=== PATIENT | female | born 1950 | race American Indian/Alaskan Native ===

== ENCOUNTER 2018-11-24 00:03 | Inpatient (IN) | payer MEDICARE ==
--- NOTE | 2018-11-24 00:16 | Emergency Department Report ---
HPI - General Time Seen by Provider: 11/24/18 00:11 - HPI HPI: 68-year-old female presents to the emergency department with a complaint of shortness of breath that started earlier this afternoon. Patient had a pulse ox in the 60s when found by EMS. It went up transiently when she was placed on a nonrebreather but then it went back down into the 60s and 70s. The patient would not or could not tolerate CPAP in route. She did not receive any medications in route. She has a past medical history of CHF, previous left- sided breast cancer, pneumonia, pacemaker, hypertension, high cholesterol. The patient was just recently at [facility] for pneumonia and ended up getting a right-sided pacemaker placed. She is a former smoker. She is not on any home oxygen but apparently that has been a discussion with her physicians. I was able to get a little more information from the patient's daughter was not bedside. The patient went to [facility] about one week ago for shortness of breath and was found to have some CHF and pneumonia. She was transferred from there to [facility] where she has both her primary care physician, Dr. Pacehco, and her program checker, Dr. Serrano. She needed a pacemaker secondary to sustained bradycardia. She was at home for three days and began having this SOB this evening. While in the hospital, the patient was having some issues with urination and apparently had a urology consult. She also is due to have the salomon removed from her pacemaker placement. ED Past Medical Hx - Medications Home Medications: Home Medications Medication Instructions Recorded Confirmed Last Taken Type Unobtainable 05/19/14 05/19/14 Unknown History ED Review of Systems ROS: Stated complaint: SOPHIA Other details as noted in HPI Comment: All other systems reviewed and negative Constitutional: diaphoresis. denies: fever Eyes: denies: eye pain, vision change ENT: denies: ear pain, throat pain Respiratory: cough, shortness of breath, wheezing Cardiovascular: denies: chest pain, palpitations Gastrointestinal: denies: abdominal pain, vomiting Genitourinary: denies: dysuria, frequency Musculoskeletal: denies: back pain, arthralgia Skin: denies: rash, lesions Neurological: denies: headache, weakness Physical Exam - Physical Exam Physical Exam: GENERAL: The patient is well-developed well-nourished. HEENT: Normocephalic. Atraumatic. Patient has moist mucous membranes. EYES: Extraocular motions are intact. Pupils are equal and reactive to light bilaterally. NECK: Supple. Trachea is midline. CHEST/LUNGS: Coarse breath sounds throughout the chest. There is some basilar rhonchi. Patient has tachypnea and accessory muscle use. There is respiratory distress noted. HEART/CARDIOVASCULAR: Regular. There is no tachycardia. There is no obvious murmur. ABDOMEN: Abdomen is soft, nontender. Patient has normal bowel sounds. There is no abdominal distention. SKIN: Skin is warm and dry. NEURO: The patient is awake, alert. The patient has no focal neurologic deficits. MUSCULOSKELETAL: There is no tenderness or deformity. There is no evidence of acute injury. - ABG Interpretation Ph: 7.429 PCO2: 42 PO2: 158 Bicarbonate: 28 Interpretation: normal ED Medical Decision Making - Lab Data Result diagrams: 11/24/18 00:24 11/24/18 00:24 - EKG Data -: EKG Interpreted by Nm - EKG Data When compared to previous EKG there are: previous EKG unavailable Interpretation: other (A-V paced, LBBB, rate of 73, prolonged QT and QTc) - Radiology Data Radiology results: report reviewed PROCEDURE: XR CHEST 1V AP TECHNIQUE: Chest radiograph single view. HISTORY: Dyspnea COMPARISONS: None . FINDINGS: Heart: Normal. Mediastinum/Vessels: There is a cardiac pacemaker with the battery in the right chest wall. There are multiple skin salomon overlying the region of the pacemaker.. Lungs/Pleural space: Mild vascular congestion. Scattered infiltrates identified in both lower lungs. No effusion or pneumothorax. Bony thorax: No acute osseous abnormality. Life support devices: None. IMPRESSION: There is vascular congestion with scattered infiltrates identified in both lower lungs. No effusion or pneumothorax.. This document is electronically signed by Jory Munoz DO., November 24 2018 12:44:57 AM ET Transcribed By: [facility] Dictated By: JORY MUNOZ MD Electronically Authenticated By: JORY MUNOZ MD Signed Date/Time: 11/24/18 0046 PROCEDURE: CT ANGIO CHEST TECHNIQUE: A CT angiogram was performed following the intravenous injection of iodinated contrast. MIP sagittal, coronal and rotational reconstructions were reviewed. HISTORY: SOB, elevated dimer COMPARISONS: Chest x-ray 11/24/2018 FINDINGS: The heart is moderately enlarged. There is no evidence of pericardial effusion. The thoracic aorta is normal in caliber. There is no evidence of pulmonary embolus. The lungs are diffusely congested. There is extensive bilateral interstitial edema with superimposed alveolar airspace disease throughout the lungs. There are bilateral small to moderate-sized pleural effusions. At the thoracic inlet there are goitrous changes of both thyroid lobes which are enlarged. There is a pacemaker overlying the right chest wall with the leads in the right atrium and right ventricle. In the upper abdomen the adrenal glands are not enlarged. The skeletal structures do not show any acute changes. IMPRESSION: No evidence of pulmonary embolus or aortic dissection. Cardiomegaly with pulmonary edema pattern and bilateral effusions. Goitrous changes of the thyroid gland. Follow-up is recommended with outpatient thyroid sonography. This document is electronically signed by Laura Quinn MD., November 24 2018 04:57:28 AM ET Transcribed By: ERICK Dictated By: LAURA QUINN MD Electronically Authenticated By: LAURA QUINN MD Signed Date/Time: 11/24/18 0459 - Medical Decision Making This patient presents to the emergency department with shortness of breath and oxygen desaturation in the 60s despite a nonrebreather. Patient was placed on BiPAP with improvement of the oxygen saturation and work of breathing. She has both coarse and rhonchorous breath sounds on examination. Chest x-ray shows patchy infiltrates and some pulmonary edema. She was given an IV dose of antibiotics and Lasix. The patient also presented with a blood pressure with a systolic rhythm 200. IV hydralazine was ordered and it was given 100 blood pressure was about systolic 170, but despite being a moderate to low dose, 10 mg, the patient's blood pressure dropped into the systolic 60s. Patient was given some IV fluid resuscitation and her blood pressure normalized. Labs showed a lactic acidosis, elevated BNP of 1200 and an elevated d-dimer. CT angiography of the chest was done that does not show any pulmonary embolism or dissection but does show the patchy infiltrates and pulmonary edema/effusions. The patient will be admitted to the hospital for further evaluation and treatment and was accepted for admission by the hospitalist, Dr. Steward.3 I'm aware of the patient's family's request for transfer to [place] for continuity of care. However given her transient hypotension, the respiratory distress and her continued need for BiPAP, the patient does not appear to be stable or improved enough for a lateral transfer. - Differential Diagnosis CHF, Pneumonia, Asthma, PE, RI Critical Care Time: Yes Critical care time in (mins) excluding proc time.: 35 Critical care attestation.: If time is entered above; I have spent that time in minutes in the direct care of this critically ill patient, excluding procedure time. Critical care time was spent on this patient during her initial evaluation, madisyn brink re-evaluations, ordering and interpretation of labs and imaging, IV resuscitation, managing BiPAP, and discussions with the patient's family. Critical Care Time: 35 minutes ED Disposition Clinical Impression: Respiratory failure Qualifiers: Chronicity: acute Respiratory failure complication: unspecified whether with hypoxia or hypercapnia Qualified Code(s): J96.00 - Acute respiratory failure, unspecified whether with hypoxia or hypercapnia CHF (congestive heart failure) Qualifiers: Heart failure type: unspecified Heart failure chronicity: acute on chronic Qualified Code(s): I50.9 - Heart failure, unspecified Pneumonia Qualifiers: Pneumonia type: due to unspecified organism Laterality: unspecified laterality Lung location: unspecified part of lung Qualified Code(s): J18.9 - Pneumonia, unspecified organism Disposition: -09 OP ADMIT IP TO THIS HOSP Is pt being admited?: Yes Condition: Serious Instructions: Bacterial Pneumonia (ED) Referrals: SHERYL TIERNEY MD [Referring] - 3-5 Days Time of Disposition: 05:24
[2018-11-24] MEDS ORDERED: LEVAQUIN 750MG/150ML 750 MG/150 ML BAG IV ONE (00:38)
[2018-11-24] MEDS ORDERED: LASIX IV ONE (00:38)
--- NOTE | 2018-11-24 00:46 | XRay Report ---
PROCEDURE: XR CHEST 1V AP TECHNIQUE: Chest radiograph single view. HISTORY: Dyspnea COMPARISONS: None . FINDINGS: Heart: Normal. Mediastinum/Vessels: There is a cardiac pacemaker with the battery in the right chest wall. There are multiple skin salomon overlying the region of the pacemaker.. Lungs/Pleural space: Mild vascular congestion. Scattered infiltrates identified in both lower lungs. No effusion or pneumothorax. Bony thorax: No acute osseous abnormality. Life support devices: None. IMPRESSION: There is vascular congestion with scattered infiltrates identified in both lower lungs. No effusion or pneumothorax.. This document is electronically signed by Jory Munoz DO., November 24 2018 12:44:57 AM ET
[2018-11-24] MEDS ORDERED: APRESOLINE IV ONE (00:56)
[2018-11-24 00:57] LABS: Hemoglobin 11.1 gm/dl (10.1-14.3); Mean Corpuscular Volume 84 fl (79-97); Red Blood Count 4.18 M/mm3 (3.65-5.03)
[2018-11-24 00:58] LABS: Basophils # (Auto) 0.1 K/mm3 (0.0-0.1); Basophils % (Auto) 0.7 % (0.0-1.8); Eosinophils # (Auto) 0.2 K/mm3 (0.0-0.4); Eosinophils % (Auto) 1.6 % (0.0-4.3); Lymphocytes # (Auto) 2.9 K/mm3 (1.2-5.4); Lymphocytes % (Auto) 28.8 % (13.4-35.0); Mean Corpuscular HGB Conc 32 % (30-34); Monocytes # (Auto) 0.7 K/mm3 (0.0-0.8); Monocytes % (Auto) 6.9 % (0.0-7.3); Platelet Count 285 K/mm3 (140-440); Red Cell Distribution Width 17.8 % (13.2-15.2)
[2018-11-24 01:28] LABS: INR 1.15 (0.87-1.13); Partial Thromboplastin Time 20.3 Sec. (24.2-36.6)
[2018-11-24 01:43] LABS: Bilirubin,Direct 0.2 mg/dL (0-0.2)
[2018-11-24 01:44] LABS: Albumin 3.9 g/dL (3.9-5)
[2018-11-24 01:50] LABS: BUN/Creatinine Ratio 19; Blood Urea Nitrogen 13 mg/dL (7-17)
[2018-11-24 01:51] LABS: Calcium 10.1 mg/dL (8.4-10.2)
[2018-11-24] MEDS ORDERED: NACL 0.9% 1000 ML 1,000 ML ONE (02:15)
[2018-11-24] MEDS ORDERED: NACL 0.9% 1000 ML 1,000 ML IV ONE (02:27)
[2018-11-24 04:45] LABS: Hemolysis Index 62
--- NOTE | 2018-11-24 04:59 | Cat Scan Report ---
PROCEDURE: CT ANGIO CHEST TECHNIQUE: A CT angiogram was performed following the intravenous injection of iodinated contrast. M IP sagittal, coronal and rotational reconstructions were reviewed. HISTORY: SOB, elevated dimer COMPARISONS: Chest x-ray 11/24/2018 FINDINGS: The heart is moderately enlarged. There is no evidence of pericardial effusion. The thoracic aorta is normal in caliber. There is no evidence of pulmonary embolus. The lungs are diffusely congested. The re is extensive bilateral interstitial edema with superimposed alveolar airspace disease throughout t he lungs. There are bilateral small to moderate-sized pleural effusions. At the thoracic inlet there are goitrous changes of both thyroid lobes which are enlarged. There is a pacemaker overlying the rig ht chest wall with the leads in the right atrium and right ventricle. In the upper abdomen the adrena l glands are not enlarged. The skeletal structures do not show any acute changes. IMPRESSION: No evidence of pulmonary embolus or aortic dissection. Cardiomegaly with pulmonary edema pattern and bilateral effusions. Goitrous changes of the thyroid gland. Follow-up is recommended with outpatient thyroid sonography. This document is electronically signed by Wayne Quinn MD., November 24 2018 04:57:28 AM ET
--- NOTE | 2018-11-24 05:44 | History and Physical Report ---
History of Present Illness Date of examination: 11/24/18 History of present illness: 68 -year-old lady with a history of CHF, breast cancer, hyperlipidemia was just discharged from [facility] actually comes back to emergency room with complaints of shortness of breath started 45 minutes before arrival to the emergency room. She complains of increased lower extremity edema and pain in the left substernal area, unable to give further information about the pain. She was treated at [place] for CHF, pneumonia, status post recent pacemaker placement Review of systems Constitutional: no weight loss, chills, fever Ears, eyes, nose, mouth and throat: no nasal congestion, no nasal discharge, no sinus pressure, no vision change, no red eye. Neck: No neck pain or rigidity. Cardiovascular: no palpitations,+ chest pain Respiratory: no cough, +shortness of breath Gastrointestinal: no hematochezia, abdominal pain Genitourinary : no frequency , no hematuria Musculoskeletal: no joint swelling or muscle ache Integumentary: no rash, no pruritis Neurological: no parathesias, no focal weakness Endocrine: no cold or heat intolerance, no polyuria or polydipsia Hematologic/Lymphatic: no easy bruising, no easy bleeding, no gland swelling Allergic/Immunologic: no urticaria, no angioedema. PAST MEDICAL HISTORY:CHF, breast cancer, hyperlipidemia PAST SURGICAL HISTORY: Pacemaker, hysterectomy SOCIAL HISTORY: Denies alcohol, drugs, tobacco FAMILY HISTORY: Hypertension Medications and Allergies Allergies Allergy/AdvReac Type Severity Reaction Status Date / Time lorazepam [From Ativan] AdvReac Unknown Verified 11/24/18 03:37 Home Medications Medication Instructions Recorded Confirmed Last Taken Type Unobtainable 05/19/14 05/19/14 Unknown History Exam - Physical Exam Narrative exam: General Apperance: The patient lying in bed, breathing comfortable on BiPAP HEENT: Normocephalic, atraumatic. Pupils equally round and reactive to light, EOMI, no sclericterus or JVD or thyromegaly or nodule. , no carotid bruit, mucous membranes moist, no exudate or erythema Heart: S1-S2, regular is rhythm Lungs: Crackles bilaterally, breathing comfortable Abdomen: Positive bowel sounds, soft, nontender, nondistended, no organomegaly Extremities:trace edema, no cyanosis clubbing Skin: no rash, nodule, warm and dry Neuro:, speech is fluent, moves all 4 extremities - Constitutional Vitals: Temp Pulse Resp BP Pulse Ox 98.9 F 76 30 H 119/61 97 11/24/18 00:09 11/24/18 05:00 11/24/18 05:00 11/24/18 05:00 11/24/18 05:00 Results - Labs CBC & Chem 7: 11/24/18 00:24 11/24/18 00:24 Labs: Abnormal lab results 11/24/18 11/24/18 11/24/18 Range/Units 00:24 00:24 00:24 MCH 27 L (28-32) pg RDW 17.8 H (13.2-15.2) % PT 15.4 H (12.2-14.9) Sec. INR 1.15 H (0.87-1.13) APTT 20.3 L (24.2-36.6) Sec. D-Dimer 995.0 H (0-234) ng/mlDDU POC ABG pO2 (80-105) Glucose 199 H (65-100) mg/dL Lactic Acid (0.7-2.0) mmol/L NT-Pro-B Natriuret Pep (0-900) pg/mL 11/24/18 11/24/18 11/24/18 Range/Units 00:24 00:56 01:49 MCH (28-32) pg RDW (13.2-15.2) % PT (12.2-14.9) Sec. INR (0.87-1.13) APTT (24.2-36.6) Sec. D-Dimer (0-234) ng/mlDDU POC ABG pO2 158 H (80-105) Glucose (65-100) mg/dL Lactic Acid 2.40 H* (0.7-2.0) mmol/L NT-Pro-B Natriuret Pep 1131 H (0-900) pg/mL 11/24/18 Range/Units 02:45 MCH (28-32) pg RDW (13.2-15.2) % PT (12.2-14.9) Sec. INR (0.87-1.13) APTT (24.2-36.6) Sec. D-Dimer (0-234) ng/mlDDU POC ABG pO2 (80-105) Glucose (65-100) mg/dL Lactic Acid 3.20 H* (0.7-2.0) mmol/L NT-Pro-B Natriuret Pep (0-900) pg/mL - Imaging and Cardiology Chest x-ray: report reviewed CT scan - chest: report reviewed Assessment and Plan Assessment CHF exacerbation, probably systolic dysfunction Chest pain Hyperlipidemia History of breast cancer Recent pacemaker placement Plan Admit to medicine Start IV Lasix Check cardiac enzymes, echo, consult cardiology Monitor I's and O's, daily weights DVT prophylaxis Please follow-up meds reconcile
[2018-11-24] MEDS ORDERED: PROVENTIL IH PRN (05:56)
[2018-11-24] MEDS ORDERED: TYLENOL PO PRN (05:56)
[2018-11-24] MEDS ORDERED: ZOFRAN IV PRN (05:56)
[2018-11-24] MEDS ORDERED: SODIUM CHLORIDE FLUSH SYRINGE 10 ML IV PRN (05:56)
[2018-11-24] MEDS: LASIX IV SCH ×2 (06:09→18:02)
[2018-11-24 07:05] LABS: Creatine Kinase MB 3.2 ng/mL (0.0-4.0)
[2018-11-24] MEDS: BABY ASPIRIN PO SCH (10:21)
[2018-11-24] MEDS: SODIUM CHLORIDE FLUSH SYRINGE 10 ML IV SCH ×2 (10:24→23:31)
--- NOTE | 2018-11-24 10:51 | Event Note ---
Date: 11/24/18 Patient admitted this morning, see [id number], Once patient came into room 471, I was pulled into the room to speak with the daughters Eva and Lennie at bedside. As soon I entered the room; they lambasted me with demands to transfer patient to [facility]. They are upset because they never wanted to have their mother admitted here. Patient agrees. She appears stable on nasal canula, Will try to honor all request. So, I called [facility] transfer services at [phone] spoke with Jamia Ann
--- NOTE | 2018-11-24 11:25 | Consultation ---
History of Present Illness Consult date: 11/24/18 Consult reason: congestive heart failure History of present illness: Patient is a 68 year old woman with a cardiac history of severe mitral calci fication with moderate mitral stenosis managed medically with Pradaxa for stroke prophylaxis. Ejection fraction 55-60% by recent echocardiogram. The patient recently admitted to [facility] for pneumonia. She later transferred to [facility] where she had a Medtronic pacemaker implanted for shauna- arrhythmia with intermittent AV dissociation. Patient was brought to this hospital with shortness of breath, noted hypoxic on presentation with oxygen saturation of 62%. Chest x-ray reports mild vascular congestion with bilateral lower lung infiltrates. An ECG shows a AV sensed paced complex with an underlying bundle branch block. Medications and Allergies Allergies Allergy/AdvReac Type Severity Reaction Status Date / Time lorazepam [From Ativan] AdvReac Unknown Verified 11/24/18 03:37 Home Medications Medication Instructions Recorded Confirmed Last Taken Type Unobtainable 05/19/14 05/19/14 Unknown History Active Meds: Active Medications Acetaminophen (Tylenol) 650 mg PO Q4H PRN PRN Reason: Pain MILD(1-3)/Fever >100.5/PICKERING Albuterol (Proventil) 2.5 mg IH Q4HRT PRN PRN Reason: Shortness Of Breath Aspirin (Baby Aspirin) 81 mg PO QDAY [facility] Last Admin: 11/24/18 10:21 Dose: 81 mg Documented by: Furosemide (Lasix) 40 mg IV BID@0600,1800 [facility] Last Admin: 11/24/18 06:09 Dose: 40 mg Documented by: Ondansetron HCl (Zofran) 4 mg IV Q8H PRN PRN Reason: Nausea And Vomiting Sodium Chloride (Sodium Chloride Flush Syringe 10 Ml) 10 ml IV BID [facility] Last Admin: 11/24/18 10:24 Dose: 10 ml Documented by: Sodium Chloride (Sodium Chloride Flush Syringe 10 Ml) 10 ml IV PRN PRN PRN Reason: LINE FLUSH Physical Examination Vital Signs Pulse Pulse Ox 77 63 L 11/24/18 00:06 11/24/18 00:06 General appearance: no acute distress HEENT: Positive: PERRL Cardiac: Positive: Other (paced) Lungs: Positive: Decreased Breath Sounds Extremities: Absent: edema Results 11/24/18 00:24 11/24/18 00:24 Cardiac Enzymes 11/24/18 11/24/18 Range/Units 00:24 06:31 AST 36 (5-40) units/L CK-MB (CK-2) 3.2 (0.0-4.0) ng/mL Coagulation 11/24/18 Range/Units 00:24 PT 15.4 H (12.2-14.9) Sec. INR 1.15 H (0.87-1.13) APTT 20.3 L (24.2-36.6) Sec. CBC 11/24/18 Range/Units 00:24 WBC 10.0 (4.5-11.0) K/mm3 RBC 4.18 (3.65-5.03) M/mm3 Hgb 11.1 (10.1-14.3) gm/dl Hct 35.0 (30.3-42.9) % Plt Count 285 (140-440) K/mm3 Lymph # 2.9 (1.2-5.4) K/mm3 [place] # 0.7 (0.0-0.8) K/mm3 Eos # 0.2 (0.0-0.4) K/mm3 Baso # 0.1 (0.0-0.1) K/mm3 Comprehensive Metabolic Panel 11/24/18 11/24/18 Range/Units 00:24 00:24 Sodium 138 (137-145) mmol/L Potassium 3.8 (3.6-5.0) mmol/L Chloride 99.8 (98-107) mmol/L Carbon Dioxide 22 (22-30) mmol/L BUN 13 (7-17) mg/dL Creatinine 0.7 (0.7-1.2) mg/dL Glucose 199 H (65-100) mg/dL Calcium 10.1 (8.4-10.2) mg/dL Direct Bilirubin 0.2 (0-0.2) mg/dL Indirect Bilirubin 0.2 mg/dL AST 36 (5-40) units/L ALT 30 (7-56) units/L Alkaline Phosphatase 84 (35-129) units/L Total Protein 6.8 (6.3-8.2) g/dL Albumin 3.9 (3.9-5) g/dL Assessment and Plan Acute hypoxic respiratory failure Pneumonia Hx of Severe mitral calcification with moderate mitral stenosis managed medically Pacemaker implant (Medtronic) EF 55-60% by echocardiogram done at [facility] 11/09/18
[2018-11-24 13:11] LABS: Creatine Kinase MB 3.6 ng/mL (0.0-4.0)
--- NOTE | 2018-11-24 17:32 | Event Note ---
Date: 11/24/18 Please transferred to [facility], service of Dr. Chatman for further surgical evaluation of severe mitral stenosis and acute pulmonary edema.
--- NOTE | 2018-11-24 18:02 | Discharge Summary ---
Providers - Providers Date of Admission: 11/24/18 05:42 Attending physician: AILIN BONILLA 11/24/18 05:56 Consult to Physician [CONS] Routine Comment: Consulting Provider: MARY DESHPANDE Physician Instructions: Reason For Exam: chf Primary care physician: MIRELA AGRAWAL Hospitalization Condition: Fair Hospital course: Patient admitted for CHF, family and patient wants to be transferred to [place] Acute diastolic heart failure, est EF at 55-60% per Cardiology Severe mitral stenosis Acute hypoxic respiratory failure due to p. edema from above, off bipap and on nasal canula Chest pain Hyperlipidemia History of breast cancer Recent pacemaker placement at [place], Dr. Cuadra per family To [facility] under Dr. Chatman, arranged by Dr. Benson. Disposition: DC/TX-70 ANOTHER TYPE HLTHCARE Time spent for discharge: 31 min Core Measure Documentation - Palliative Care Palliative Care/ Comfort Measures: Not Applicable - Core Measures Any of the following diagnoses?: heart failure - VTE Discharge Requirements Deep Vein Thrombosis/Pulmonary Embolism Present on Admission: No Has pt received <5 days of overlap therapy or INR<2.0: No Anticoagulant overlap therapy prescribed at discharge: No Contraindication No Overlap Therapy order at DC: Not Indicated - Heart Failure Discharge Requirements LAURA/ARB for LVSD if EF <40%: Yes Beta oc at discharge: Yes Exam - Constitutional Vitals: Temp Pulse Resp BP Pulse Ox 98.3 F 76 22 137/74 95 11/24/18 16:05 11/24/18 16:05 11/24/18 16:05 11/24/18 16:09 11/24/18 16:05 Plan Activity: other (no strenous activity) Follow up with: SHERYL TIERNEY MD [Referring] - 3-5 Days
[2018-11-25 06:20] LABS: Basophils % (Auto) 0.5 % (0.0-1.8); Eosinophils % (Auto) 0.1 % (0.0-4.3); Hematocrit 30.5 % (30.3-42.9); Lymphocytes % (Auto) 10.5 % (13.4-35.0); Mean Corpuscular HGB Conc 33 % (30-34); Mean Corpuscular Volume 80 fl (79-97); Monocytes # (Auto) 0.9 K/mm3 (0.0-0.8); Platelet Count 236 K/mm3 (140-440); Red Blood Count 3.79 M/mm3 (3.65-5.03); Red Cell Distribution Width 17.3 % (13.2-15.2)
[2018-11-25 06:37] LABS: BUN/Creatinine Ratio 18; Blood Urea Nitrogen 11 mg/dL (7-17); Calcium 9.6 mg/dL (8.4-10.2); Hemolysis Index 1
[2018-11-25] MEDS: LASIX IV SCH (06:51)
[2018-11-25] MEDS: BABY ASPIRIN PO SCH (09:44)
[2018-11-25] MEDS: SODIUM CHLORIDE FLUSH SYRINGE 10 ML IV SCH (09:45)
[2018-11-25] MEDS ORDERED: COLACE PO SCH (10:00)
[2018-11-25] MEDS ORDERED: NON-FORMULARY (Anastrozole [Arimidex] 1 MG) PO SCH (10:00)
[2018-11-25] MEDS ORDERED: GLYCERIN ADULT 2 GM PR PRN (10:45)
[2018-11-25] MEDS ORDERED: SENOKOT S PO PRN (10:45)
--- NOTE | 2018-11-25 10:54 | Progress Note ---
Assessment and Plan Acute hypoxic respiratory failure Acute pulmonary edema Hx of Severe mitral calcification with at least moderate mitral stenosis Pacemaker implant (Medtronic) EF 55-60% by echocardiogram done at [facility] 11/09/18. Awaits transfer to [place] for further evaluation of mitral stenosis. Subjective Date of service: 11/25/18 Interval history: Awaits transfer to [place]. No cardiac events reported. Objective Vital Signs Temp Pulse Pulse Resp Resp BP BP 11/25/18 08:21 98.6 F 70 20 117/69 11/25/18 04:43 98.4 F 72 20 143/78 11/25/18 04:40 74 20 11/25/18 02:00 79 32 H 11/25/18 01:55 88 26 H 11/25/18 01:46 85 26 H 11/25/18 00:19 98.2 F 84 20 142/71 11/24/18 23:00 70 11/24/18 21:00 24 11/24/18 20:14 99.0 F 70 12 143/65 11/24/18 19:32 11/24/18 16:09 137/74 11/24/18 16:05 98.3 F 76 22 11/24/18 15:11 72 Pulse Ox 11/25/18 08:21 99 11/25/18 04:43 100 11/25/18 04:40 100 11/25/18 02:00 100 11/25/18 01:55 11/25/18 01:46 11/25/18 00:19 89 11/24/18 23:00 11/24/18 21:00 11/24/18 20:14 97 11/24/18 19:32 98 11/24/18 16:09 11/24/18 16:05 95 11/24/18 15:11 - Physical Examination General: No Apparent Distress HEENT: Positive: PERRL Cardiac: Positive: Other (paced) Extremities: Absent: edema - Labs and Meds Cardiac Enzymes 11/24/18 Range/Units 12:27 CK-MB (CK-2) 3.6 (0.0-4.0) ng/mL CBC 11/25/18 Range/Units 05:37 WBC 9.5 (4.5-11.0) K/mm3 RBC 3.79 (3.65-5.03) M/mm3 Hgb 10.0 L (10.1-14.3) gm/dl Hct 30.5 (30.3-42.9) % Plt Count 236 (140-440) K/mm3 Lymph # 1.0 L (1.2-5.4) K/mm3 [place] # 0.9 H (0.0-0.8) K/mm3 Eos # 0.0 (0.0-0.4) K/mm3 Baso # 0.0 (0.0-0.1) K/mm3 Comprehensive Metabolic Panel 11/25/18 Range/Units 05:37 Sodium 141 (137-145) mmol/L Potassium 3.8 (3.6-5.0) mmol/L Chloride 103.0 (98-107) mmol/L Carbon Dioxide 26 (22-30) mmol/L BUN 11 (7-17) mg/dL Creatinine 0.6 L (0.7-1.2) mg/dL Glucose 92 (65-100) mg/dL Calcium 9.6 (8.4-10.2) mg/dL
--- NOTE | 2018-11-25 11:57 | Discharge Summary ---
Providers - Providers Date of Admission: 11/24/18 05:42 Attending physician: JONATHAN WHEELER MD 11/24/18 05:56 Consult to Physician [CONS] Routine Comment: Consulting Provider: MARY DESHPANDE Physician Instructions: Reason For Exam: chf Primary care physician: MIRELA AGRAWAL Hospitalization Condition: Fair Hospital course: 68-year-old woman with history of CHF, history of breast cancer and hyperlipidemia who was recently discharged from [facility]. She presented to the hospital with shortness of breath and increased lower extremity edema and chest pain. The patient's noted to have history of severe mitral stenosis, she was previously a poor candidate for mitral valve replacement., She was treated in the hospital IV diuretics, and she was transferred to [place] for CT surgery evaluation for intervention to her mitral valve. -The patient received straight cath as needed for urinary retention Diagnoses Severe mitral valve stenosis Acute on chronic diastolic CHF Status post [employer] pacemaker. Acute hypoxic respiratory failure On anticoagulation, pradaxa, for arrhythmia Hypercoagulable state. -Pneumonia was ruled out, she clinically had CHF and not pneumonia Chronic urinary retention Disposition: [id number]/[id number] [facility] IP Time spent for discharge: 33 minutes Core Measure Documentation - Palliative Care Palliative Care/ Comfort Measures: Not Applicable - Core Measures Any of the following diagnoses?: heart failure - Heart Failure Discharge Requirements LAURA/ARB for LVSD if EF <40%: Not Applicable Beta oc at discharge: Yes Exam - Constitutional Vitals: Temp Pulse Resp BP Pulse Ox 98.2 F 70 20 117/55 100 11/25/18 10:42 11/25/18 10:42 11/25/18 10:42 11/25/18 10:42 11/25/18 10:42 General appearance: Present: no acute distress, well-nourished - EENT Eyes: Present: PERRL ENT: hearing intact, clear oral mucosa - Neck Neck: Present: supple, normal ROM - Respiratory Respiratory effort: normal Respiratory: bilateral: diminished, rales - Cardiovascular Heart Sounds: Present: S1 & S2. Absent: rub, click - Extremities Extremities: pulses symmetrical, No edema Extremity abnormal: edema Peripheral Pulses: within normal limits - Abdominal General gastrointestinal: Present: soft, non-tender, non-distended, normal bowel sounds Female genitourinary: Present: normal - Integumentary Integumentary: Present: clear, warm, dry - Musculoskeletal Musculoskeletal: gait normal, strength equal bilaterally - Psychiatric Psychiatric: appropriate mood/affect, intact judgment & insight - Neurologic Neurologic: CNII-XII intact, moves all extremities Plan Follow up with: SHERYL TIERNEY MD [Referring] - 3-5 Days
[2018-11-25] MEDS ORDERED: LOVENOX SUB-Q SCH (12:00)
[2018-11-25] MEDS ORDERED: MIRALAX 3350 PO SCH (12:00)
[2018-11-25] MEDS ORDERED: APRESOLINE PO SCH (12:00)
[2018-11-25] MEDS ORDERED: PRED FORTE 1% OD SCH (14:00)
[2018-11-25] MEDS ORDERED: PREDNISOLONE ACETATE OD SCH (14:00)
[2018-11-25 18:05] VITALS: BP 117/55
[2018-11-26] MEDS ORDERED: VITAMIN D3 PO SCH (10:00)
[2018-11-26] MEDS ORDERED: NON-FORMULARY (Cholecalciferol (Vitamin D3) [Vitamin D3] 5,000 UNIT) PO SCH (10:00)
== END 2018-11-25 17:20 | disposition short-term general hospital (02) | DRG 306 ==
LOC: ED 00:03 → 4A 05:42
PROVIDERS: ADMIT Internal Medicine; ATTEND Internal Medicine
PROC: 4A033R1 Measurement of Arterial Saturation, Peripheral, Percutaneous Approach (ICD-10-PCS; principal; 2018-11-24)
PROC: 5A09457 Assistance with Respiratory Ventilation, 24-96 Consecutive Hours, Continuous Positive Airway Pressure (ICD-10-PCS; 2018-11-24)
DX: I05.0 Rheumatic mitral stenosis (principal); J96.01 Acute respiratory failure with hypoxia; J18.9 Pneumonia, unspecified organism; J81.0 Acute pulmonary edema; E78.00 Pure hypercholesterolemia, unspecified; I50.9 Heart failure, unspecified; E78.5 Hyperlipidemia, unspecified; R07.9 Chest pain, unspecified; Z88.8 Allergy status to other drugs, medicaments and biological substances; Z85.3 Personal history of malignant neoplasm of breast; Z95.0 Presence of cardiac pacemaker; Z90.710 Acquired absence of both cervix and uterus; Z82.49 Family history of ischemic heart disease and other diseases of the circulatory system
CPT/HCPCS: 36415; 71045; 71275; 80048; 80076; 82140; 82550; 82553; 82803; 83880; 84484; 85025; 85379; 85610; 85730; 87040; 93005; 93010; 94640; 94760; G0378; J0360; J1650; J1940; J1956; J7030; Q9967